=== PATIENT | male | born 1985 | race Asian ===

== ENCOUNTER 2016-03-07 07:56 | Day surgery (SDC) | payer BC ==
[2016-03-07] MEDS ORDERED: ROCURONIUM 50 MG/5 ML VIAL ONE (08:18)
[2016-03-07] MEDS ORDERED: fentaNYL 250 MCG/5 ML INJ ONE (08:18)
[2016-03-07] MEDS ORDERED: LIDOCAINE 2% 100 MG/5 ML SYR IVP ONE (08:19)
[2016-03-07] MEDS ORDERED: PROPOFOL 200 MG/20 ML VIAL ONE ×2 (08:19)
[2016-03-07] MEDS ORDERED: LIDOCAINE 1% 5 ML SDV ID PRN (08:23)
[2016-03-07] MEDS ORDERED: LR 1,000 ML IV ONE (08:23)
[2016-03-07] MEDS ORDERED: MIDAZOLAM 2 MG/2 ML VIAL ONE (09:47)
[2016-03-07] MEDS ORDERED: DEXAMETHASONE 4 MG/ML VIAL ONE (10:15)
[2016-03-07] MEDS ORDERED: ONDANSETRON 4 MG/2 ML VIAL ONE (10:15)
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
== END 2016-03-07 12:17 | disposition home or self-care (01) ==
LOC: FSGY 07:56
PROVIDERS: ATTEND Otolaryngology
PROC: 0NSBXZZ Reposition Nasal Bone, External Approach (ICD-10-PCS; principal; 2016-03-07 09:30)
DX: S02.2XXA Fracture of nasal bones, initial encounter for closed fracture (principal); Y04.2XXA Assault by strike against or bumped into by another person, initial encounter; J34.9 Unspecified disorder of nose and nasal sinuses; J34.2 Deviated nasal septum; N02.8 Recurrent and persistent hematuria with other morphologic changes
CPT/HCPCS: J1100; J2001; J2250; J2405; J2704; J3010

== ENCOUNTER → 2016-11-30 | Outpatient (CLI) | payer OTHER | LOC: BMCIMAGING 16:25 | PROVIDERS: ATTEND Internal Medicine | DX: R07.89 Other chest pain (principal) ==

== ENCOUNTER → 2016-12-05 | Outpatient (CLI) | payer OTHER ==
[~2016-12-05] MED LIST: IOPAMIDOL (ISOVUE 370) 100 ML BTL IV ONE
== END ==
LOC: FIMAGING 17:03
PROVIDERS: ATTEND Internal Medicine
DX: R07.9 Chest pain, unspecified (principal); R06.02 Shortness of breath
CPT/HCPCS: Q9967

== ENCOUNTER → 2018-07-25 | Outpatient (CLI) | payer OTHER | LOC: BMCIMAGING 10:38 | PROVIDERS: ATTEND Internal Medicine | DX: S69.91XA Unspecified injury of right wrist, hand and finger(s), initial encounter (principal); M54.9 Dorsalgia, unspecified; Y93.9 Activity, unspecified ==